=== PATIENT | male | born 1955 | race Caucasian/White ===

== ENCOUNTER → 2017-01-01 | Outpatient (CLI) | payer BC ==
[~2017-01-01] MED LIST: ADVIL200 MG; ATIVAN 0.50.5 MG/TAB PO; CATAPRES 0.1MG0.1 MG PO; CENTRUM SILVER1 TA1 PO; CLARITIN 1010 MG/TAB PO; CLARITIN-D 24 H1 T24 PO; COZAAR 50MG50 MG/TAB PO; EXCEDRIN ES PO; FLONASEALLERGY NS; GLUCOSAMINE & C1 CA1; GLUCOSAMINE & C1 TAB PO; MULTI VITAMINS1 TAB PO; MYCELEX10 MG/TAB MM; NASACORT OTC NS; NEXIUM40 MG PO; NYSTATIN OR100 MU/ML PO; PEPCID 20MG TAB20 MG PO; PROAMATINE 5MG T5 MG PO; SYNTHROID0.05 MG/TA PO; VALTREX1 GM PO; ZYRTEC 10MG10 MG PO
== END ==
LOC: COL.CARD 14:30
DX: I10 Essential (primary) hypertension (principal)

== ENCOUNTER 2017-03-04 19:28 | Emergency (ER) | payer BC ==
[~2017-03-04] VITALS: Ht 180.3 cm; Wt 70.5 kg
[~2017-03-04 19:28] MED LIST changes: -CATAPRES 0.1MG0.1 MG PO; -CLARITIN 1010 MG/TAB PO; -COZAAR 50MG50 MG/TAB PO; -FLONASEALLERGY NS; -GLUCOSAMINE & C1 TAB PO; -MULTI VITAMINS1 TAB PO; -MYCELEX10 MG/TAB MM; -NYSTATIN OR100 MU/ML PO; -PEPCID 20MG TAB20 MG PO; -PROAMATINE 5MG T5 MG PO; -ZYRTEC 10MG10 MG PO
[2017-03-04 19:31] VITALS: TEMP 98
[2017-03-04] MEDS ORDERED: CATAPRES 0.1MG0.1 MG PO (19:39)
[2017-03-04] MEDS ORDERED: COZAAR 50MG50 MG/TAB PO (19:39)
[2017-03-04] MEDS ORDERED: PROAMATINE 5MG T5 MG PO (19:40)
[2017-03-04] MEDS ORDERED: NYSTATIN OR100 MU/ML PO (19:40)
[2017-03-04] MEDS ORDERED: MYCELEX10 MG/TAB MM (19:41)
[2017-03-04] MEDS ORDERED: PEPCID 20MG TAB20 MG PO (19:42)
[2017-03-04] MEDS ORDERED: MULTI VITAMINS1 TAB PO (19:44)
[2017-03-04] MEDS ORDERED: FLONASEALLERGY NS (19:44)
[2017-03-04] MEDS ORDERED: ZYRTEC 10MG10 MG PO (19:44)
[2017-03-04] MEDS ORDERED: GLUCOSAMINE & C1 TAB PO (19:45)
[2017-03-04 20:01] LABS: BASO % 0.5 % (0.0-2.0); EOS # 0.7 (0.0-0.7); EOS % 11.3 % (0-4.0); GRAN # 3.6 (1.4-6.5); GRAN % 59.8 % (42.2-75.2); HEMOGLOBIN 12.2 g/dl (13.5-18.0); LYMPH # 1.4 (1.2-3.4); LYMPH % 23.3 % (20.0-51.0); MEAN CELL VOLUME 95 fl (80.0-100.0); MEAN CORPUSCULAR HEMOGLOBIN 32 pg (27.0-31.0); MEAN CORPUSCULAR HGB CONC 33 g/dl (33.0-37.0); MEAN PLATELET VOLUME 11.1 fl (7.4-10.4); MONO # 0.3 (0.1-0.6); MONO % 4.9 % (1.7-9.3); PLATELET COUNT 188 K/mm3 (130-400); RED BLOOD COUNT 3.87 M/mm3 (4.20-5.60); REDCELL DISTRIBUTION WIDTH-CV 12.5 % (11.5-14.5); WHITE BLOOD COUNT 5.9 K/mm3 (4.8-10.8)
[2017-03-04 20:02] LABS: HEMATOCRIT 36.8 % (42.0-52.0)
[2017-03-04] MEDS ORDERED: CLARITIN 1010 MG/TAB PO (20:04)
[2017-03-04 20:16] LABS: ANION GAP 9 mmol/L (7-16); BLOOD UREA NITROGEN 46 mg/dL (9-20); CALCIUM 9.2 mg/dL (8.4-10.2); CARBON DIOXIDE 29 mmol/L (22-30); CHLORIDE 102 mmol/L (98-107); CREATININE, serum 0.94 mg/dL (0.66-1.25); GLUCOSE 92 mg/dL (74-106); POTASSIUM 3.9 mmol/L (3.4-5.0); SODIUM 141 mmol/L (137-145)
[2017-03-04 20:27] LABS: TROPONIN-I < 0.012 ng/mL (0.000-0.034)
[2017-03-04 21:26] VITALS: BP 153/86; PULSE 86
== END 2017-03-04 21:27 | disposition home or self-care (01) ==
LOC: COL.ER 19:28
PROVIDERS: Emergency Medicine
DX: R07.9 Chest pain, unspecified (principal); R29.898 Other symptoms and signs involving the musculoskeletal system; R20.0 Anesthesia of skin; Z85.9 Personal history of malignant neoplasm, unspecified; I10 Essential (primary) hypertension
CPT/HCPCS: Q9967

== ENCOUNTER → 2017-04-13 | Outpatient (CLI) | payer BC ==
[~2017-04-13] MED LIST changes: +CATAPRES 0.1MG0.1 MG PO; +CLARITIN 1010 MG/TAB PO; +COZAAR 50MG50 MG/TAB PO; +FLONASEALLERGY NS; +GLUCOSAMINE & C1 TAB PO; +MULTI VITAMINS1 TAB PO; +MYCELEX10 MG/TAB MM; +NYSTATIN OR100 MU/ML PO; +PEPCID 20MG TAB20 MG PO; +PROAMATINE 5MG T5 MG PO; +ZYRTEC 10MG10 MG PO
== END ==
LOC: ZCOL.LAB 10:15
DX: K12.30 Oral mucositis (ulcerative), unspecified (principal)

== ENCOUNTER → 2017-09-21 | Outpatient (CLI) | payer BC | LOC: COL.RAD 07:57 | DX: R26.89 Other abnormalities of gait and mobility (principal); R42 Dizziness and giddiness | CPT/HCPCS: A9585 ==

== ENCOUNTER → 2017-10-12 | Outpatient (CLI) | payer BC | LOC: ZLAB.ENT 15:00 | DX: K12.30 Oral mucositis (ulcerative), unspecified (principal) ==

== ENCOUNTER → 2017-12-10 | Outpatient (CLI) | payer BC | LOC: COL.CARD 09:38 | DX: R03.0 Elevated blood-pressure reading, without diagnosis of hypertension (principal) ==

== ENCOUNTER 2018-01-31 20:43 | Inpatient (IN) | payer BC ==
[~2018-01-31] VITALS: Ht 177.8 cm; Wt 70.8 kg
[~2018-01-31 20:43] MED LIST changes: +NEXIUM 40MG40 MG PO; -NEXIUM40 MG PO; -PROAMATINE 5MG T5 MG PO; +PROAMATINE10 MG PO
[2018-01-31 21:25] LABS: BASO % 0.4 % (0.0-2.0); EOS # 0.7 (0.0-0.7); EOS % 8.5 % (0-4.0); GRAN # 5.3 (1.4-6.5); GRAN % 69.8 % (42.2-75.2); HEMATOCRIT 37.3 % (42.0-52.0); HEMOGLOBIN 12.1 g/dl (13.5-18.0); LYMPH # 1.3 (1.2-3.4); LYMPH % 16.8 % (20.0-51.0); MEAN CELL VOLUME 95 fl (80.0-100.0); MEAN CORPUSCULAR HEMOGLOBIN 31 pg (27.0-31.0); MEAN CORPUSCULAR HGB CONC 32 g/dl (33.0-37.0); MEAN PLATELET VOLUME 10.8 fl (7.4-10.4); MONO # 0.3 (0.1-0.6); MONO % 4.2 % (1.7-9.3); PLATELET COUNT 221 K/mm3 (130-400); RED BLOOD COUNT 3.91 M/mm3 (4.20-5.60); REDCELL DISTRIBUTION WIDTH-CV 12.9 % (11.5-14.5)
[2018-01-31 21:34] LABS: ALBUMIN 3.9 gm/dL (3.5-5.0); BILIRUBIN,TOTAL 0.3 mg/dL (0.0-1.0); CALCIUM 9.3 mg/dL (8.4-10.2); CREATININE, serum 0.96 mg/dL (0.66-1.25); POTASSIUM 4.2 mmol/L (3.4-5.0); TOTAL PROTEIN 7.4 gm/dL (6.4-8.2)
[2018-01-31] MEDS ORDERED: APRESOLINE 25MG25 MG PO (22:03)
[2018-01-31] MEDS ORDERED: CARAFATE 1GM1 G PO (22:04)
[2018-01-31] MEDS ORDERED: DIFLUCAN 100MG100 MG PO (22:32)
[2018-01-31 23:22] VITALS: BP 159/91; PULSE 94; TEMP 98.7
[2018-02-01 05:00] VITALS: BP 121/78; PULSE 86; TEMP 98.6
[2018-02-01 08:03] VITALS: BP 113/69; PULSE 101; TEMP 98.6
[2018-02-01 08:52] LABS: BASO % 0.5 % (0.0-2.0); EOS # 0.6 (0.0-0.7); EOS % 10.1 % (0-4.0); GRAN # 3.9 (1.4-6.5); GRAN % 70.2 % (42.2-75.2); HEMOGLOBIN 10.6 g/dl (13.5-18.0); LYMPH # 0.8 (1.2-3.4); LYMPH % 14.6 % (20.0-51.0); MEAN CELL VOLUME 95 fl (80.0-100.0); MEAN CORPUSCULAR HEMOGLOBIN 31 pg (27.0-31.0); MEAN CORPUSCULAR HGB CONC 33 g/dl (33.0-37.0); MEAN PLATELET VOLUME 10.4 fl (7.4-10.4); MONO # 0.2 (0.1-0.6); MONO % 4.2 % (1.7-9.3); PLATELET COUNT 185 K/mm3 (130-400); RED BLOOD COUNT 3.43 M/mm3 (4.20-5.60); REDCELL DISTRIBUTION WIDTH-CV 12.8 % (11.5-14.5)
[2018-02-01 08:53] LABS: HEMATOCRIT 32.5 % (42.0-52.0)
[2018-02-01 09:01] LABS: CALCIUM 8.7 mg/dL (8.4-10.2); CREATININE, serum 0.81 mg/dL (0.66-1.25); POTASSIUM 3.8 mmol/L (3.4-5.0)
[2018-02-01 11:29] VITALS: BP 146/90; PULSE 93; TEMP 97.8
== END 2018-02-01 17:00 | disposition home or self-care (01) | DRG 179 ==
LOC: COL.ER 20:43 → MEDICAL 21:35
PROVIDERS: Emergency Medicine; Nurse Practitioner Family
DX: J69.0 Pneumonitis due to inhalation of food and vomit (principal); Z85.819 Personal history of malignant neoplasm of unspecified site of lip, oral cavity, and pharynx; K21.9 Gastro-esophageal reflux disease without esophagitis; K25.9 Gastric ulcer, unspecified as acute or chronic, without hemorrhage or perforation; E03.9 Hypothyroidism, unspecified; Z92.3 Personal history of irradiation
CPT/HCPCS: G0378; J7030; J7042

== ENCOUNTER 2019-05-11 16:16 | Emergency (ER) | payer MEDICARE, BC ==
[~2019-05-11] VITALS: Ht 180.3 cm; Wt 65.9 kg
[~2019-05-11 16:16] MED LIST changes: +APRESOLINE 25MG25 MG PO; +CARAFATE 1GM1 G PO; +DIFLUCAN 100MG100 MG PO
[2019-05-11 16:25] VITALS: BP 129/81; TEMP 99.9
[2019-05-11 17:44] LABS: BASO % 0.2 % (0.0-2.0); EOS # 0.2 (0.0-0.7); EOS % 2.1 % (0-4.0); GRAN # 8.7 (1.4-6.5); HEMOGLOBIN 10.6 g/dl (13.5-18.0); LYMPH # 0.4 (1.2-3.4); LYMPH % 4.1 % (20.0-51.0); MEAN CELL VOLUME 100 fl (80.0-100.0); MEAN CORPUSCULAR HEMOGLOBIN 31 pg (27.0-31.0); MEAN CORPUSCULAR HGB CONC 32 g/dl (33.0-37.0); MEAN PLATELET VOLUME 11.6 fl (7.4-10.4); MONO # 0.5 (0.1-0.6); MONO % 5.3 % (1.7-9.3); PLATELET COUNT 191 K/mm3 (130-400); RED BLOOD COUNT 3.38 M/mm3 (4.20-5.60); REDCELL DISTRIBUTION WIDTH-CV 13.4 % (11.5-14.5)
[2019-05-11 17:55] LABS: BILIRUBIN,TOTAL 0.3 mg/dL (0.0-1.0); CALCIUM 9.2 mg/dL (8.4-10.2); CREATININE, serum 0.87 (0.66-1.25); POTASSIUM 4.2 mmol/L (3.4-5.0); TOTAL PROTEIN 7.1 gm/dL (6.4-8.2)
[2019-05-11 18:00] LABS: HEMATOCRIT 33.7 % (42.0-52.0)
[2019-05-11 18:07] LABS: C-REACTIVE PROTEIN 21.7 mg/dL (0.0-0.9)
[2019-05-11 18:26] LABS: ERYTHROCYTE SEDIMENTATION RATE 69 mm/hr (0-30)
[2019-05-11 22:08] LABS: COLLECTION METHOD CLEAN CATCH
[2019-05-11 22:13] LABS: PH 6 (5-8); SQUAMOUS EPITHELIAL None Seen /hpf; URINE APPEARANCE Clear; URINE BACTERIA None Seen /hpf; URINE BILIRUBIN Negative (NEGATIVE); URINE BLOOD Negative (NEGATIVE); URINE COLOR Yellow; URINE GLUCOSE Negative (NEGATIVE); URINE KETONE Negative (NEGATIVE); URINE LEUKOCYTE ESTERASE Negative (NEGATIVE); URINE NITRATE Negative (NEGATIVE); URINE PROTEIN(semi-quant) 1+ (NEGATIVE); URINE RBC 0-2 /hpf; URINE UROBILINOGEN Negative (NEGATIVE); URINE WBC 0-2 /hpf
[2019-05-11 22:55] VITALS: PULSE 115
== END 2019-05-11 22:55 | disposition short-term general hospital (02) ==
LOC: COL.ER 16:16
PROVIDERS: Emergency Medicine
DX: J18.1 Lobar pneumonia, unspecified organism (principal); M79.605 Pain in left leg; M79.604 Pain in right leg; K21.9 Gastro-esophageal reflux disease without esophagitis; E03.9 Hypothyroidism, unspecified; Z85.21 Personal history of malignant neoplasm of larynx
CPT/HCPCS: A4216; J0696; J7030; Q9967

== ENCOUNTER → 2020-04-07 | Outpatient (CLI) | payer MEDICARE, BC ==
[~2020-04-07] MED LIST changes: +AFRIN 15 ML15 ML NS; +CARDENE 20MG CA20 M1 PO; +EXCEDRIN1 TAB PO; +FLEXERIL5 MG PO; +IMODIUM MULTI-S1 TAB PO; +MOTRIN 200200 MG/TAB PO; +PULMICORT0.5 MG/2 M IH; +UNISOM25 MG PO
== END ==
LOC: MC.RAD 13:23
DX: N63.0 Unspecified lump in unspecified breast (principal)

== ENCOUNTER → 2020-09-02 | Outpatient (CLI) | payer MEDICARE, BC | LOC: ZCOL.LAB 21:18 | DX: L08.9 Local infection of the skin and subcutaneous tissue, unspecified (principal) ==

== ENCOUNTER → 2021-01-12 | Outpatient (CLI) | payer MEDICARE, BC ==
[~2021-01-12] MED LIST changes: +MEDROL 4MG DOSPA4 MG PO; +ULTRAM 50MG TAB50 MG PO
== END ==
LOC: COL.RAD 08:56
DX: C05.9 Malignant neoplasm of palate, unspecified (principal)
CPT/HCPCS: A9503

== ENCOUNTER 2021-02-28 01:11 | Emergency (ER) | payer MEDICARE, BC ==
[~2021-02-28] VITALS: Ht 180.3 cm; Wt 74.1 kg
[~2021-02-28 01:11] MED LIST changes: -MEDROL 4MG DOSPA4 MG PO; -ULTRAM 50MG TAB50 MG PO
[2021-02-28] MEDS ORDERED: MEDROL 4MG DOSPA4 MG PO (01:49)
[2021-02-28 02:21] VITALS: BP 164/102; PULSE 110; TEMP 98.8
== END 2021-02-28 02:28 | disposition home or self-care (01) ==
LOC: COL.ER 01:11
DX: K94.23 Gastrostomy malfunction (principal)

== ENCOUNTER 2021-03-08 18:22 | Emergency (ER) | payer MEDICARE, BC ==
[~2021-03-08] VITALS: Ht 180.3 cm; Wt 74.1 kg
[~2021-03-08 18:22] MED LIST changes: +MEDROL 4MG DOSPA4 MG PO
[2021-03-08 19:15] VITALS: BP 169/109; PULSE 115; TEMP 98.2
== END 2021-03-08 19:54 | disposition left against medical advice (07) ==
LOC: COL.ER 18:22
DX: R50.9 Fever, unspecified (principal)

== ENCOUNTER 2021-03-16 11:17 | Emergency (ER) | payer MEDICARE, BC ==
[~2021-03-16] VITALS: Ht 180.3 cm; Wt 74.1 kg
[2021-03-16 11:25] VITALS: TEMP 98.7
[2021-03-16 11:59] LABS: HEMOGLOBIN 10.2 g/dl (13.5-18.0); MEAN CELL VOLUME 88 fl (80.0-100.0); MEAN CORPUSCULAR HEMOGLOBIN 28 pg (27.0-31.0); MEAN CORPUSCULAR HGB CONC 32 g/dl (33.0-37.0); MEAN PLATELET VOLUME 10.4 fl (7.4-10.4); PLATELET COUNT 280 K/mm3 (130-400); RED BLOOD COUNT 3.67 M/mm3 (4.20-5.60)
[2021-03-16 12:05] LABS: ALBUMIN 3.4 gm/dL (3.5-5.0); BILIRUBIN,TOTAL 0.1 mg/dL (0.0-1.0); CALCIUM 8.7 mg/dL (8.4-10.2); CREATININE, serum 0.79 (0.66-1.25); POTASSIUM 3.7 mmol/L (3.4-5.0); TOTAL PROTEIN 6.5 gm/dL (6.4-8.2)
[2021-03-16 12:10] LABS: INR 1.1 (0.8-3.0); PROTHROMBIN TIME 12.7 SECONDS (9.7-12.8)
[2021-03-16 12:27] LABS: HEMATOCRIT 32.2 % (42.0-52.0)
[2021-03-16 12:41] LABS: BAND 2 % (0-10); BASOPHIL 1 % (0-2); EOSINOPHIL 8 % (0-4); LYMPHOCYTE 15 % (20.0-51.0); NEUTROPHILS 68 % (42.0-75.2); PLATELET ESTIMATE NORMAL (NORMAL)
[2021-03-16 12:43] LABS: HYPOCHROMIA 2+
[2021-03-16] MEDS ORDERED: ULTRAM 50MG TAB50 MG PO (16:37)
[2021-03-16 18:00] VITALS: BP 136/89; PULSE 98
== END 2021-03-16 18:00 | disposition home or self-care (01) ==
LOC: COL.ER 11:17
PROVIDERS: Nurse Practitioner Primary Care
DX: J95.01 Hemorrhage from tracheostomy stoma (principal); C14.0 Malignant neoplasm of pharynx, unspecified; K21.9 Gastro-esophageal reflux disease without esophagitis; E03.9 Hypothyroidism, unspecified; Z79.890 Hormone replacement therapy; Z79.899 Other long term (current) drug therapy

== ENCOUNTER 2021-08-15 15:13 | Emergency (ER) | payer MEDICARE, BC ==
[~2021-08-15 15:13] MED LIST changes: +ULTRAM 50MG TAB50 MG PO
[2021-08-15 15:17] VITALS: TEMP 98
[2021-08-15 15:32] LABS: MEAN CELL VOLUME 100 fl (80.0-100.0); MEAN CORPUSCULAR HGB CONC 33 g/dl (33.0-37.0); MEAN PLATELET VOLUME 10.3 fl (7.4-10.4); PLATELET COUNT 171 K/mm3 (130-400); RED BLOOD COUNT 3.02 M/mm3 (4.20-5.60); REDCELL DISTRIBUTION WIDTH-CV 17.6 % (11.5-14.5)
[2021-08-15 15:33] LABS: HEMATOCRIT 30.1 % (42.0-52.0); HEMOGLOBIN 9.9 g/dl (13.5-18.0); MEAN CORPUSCULAR HEMOGLOBIN 33 pg (27-31)
[2021-08-15 15:38] LABS: INR 1.1 (0.8-3.0); PROTHROMBIN TIME 11.8 SECONDS (9.7-12.8)
[2021-08-15 15:48] LABS: BILIRUBIN,TOTAL 0.4 mg/dL (0.2-1.2); CALCIUM 9.5 mg/dL (8.4-10.2); CREATININE, serum 0.79 mg/dL (0.72-1.25); POTASSIUM 4.6 mmol/L (3.5-4.5); TOTAL PROTEIN 6.9 gm/dL (6.2-8.1)
[2021-08-15 15:57] LABS: ANISOCYTOSIS 1+; BAND 5 % (0-10); LYMPHOCYTE 11 % (20.0-51.0); NEUTROPHILS 78 % (42.0-75.2); PLATELET ESTIMATE NORMAL (NORMAL)
[2021-08-15 17:30] VITALS: BP 143/106; PULSE 117
== END 2021-08-15 17:39 | disposition home or self-care (01) ==
LOC: COL.ER 15:13
PROVIDERS: Emergency Medicine
DX: R04.1 Hemorrhage from throat (principal); I10 Essential (primary) hypertension; C10.9 Malignant neoplasm of oropharynx, unspecified; C76.0 Malignant neoplasm of head, face and neck; K21.9 Gastro-esophageal reflux disease without esophagitis; E03.9 Hypothyroidism, unspecified; Z79.899 Other long term (current) drug therapy; Z79.890 Hormone replacement therapy
CPT/HCPCS: J7030